=== PATIENT | female | born 1960 | race African-American/Black ===

== ENCOUNTER 2017-05-09 14:25 | Emergency (ER) | payer OTHER ==
[~2017-05-09 14:25] MED LIST: ANTIINFLAMMATORY PO; CIPRO PO; CYMBALTA20 MG PO; FERROUS SULFATE PO; GEODAN PO; IBUPROFEN PO; IRON325 ( 65 ) PO; KETOPROFEN PO; LASIX PO; LISINOPRIL10 MG PO; LORTAB 7.5-5001 TAB PO; MICRO-K PO; NORCO 5/325 TAB1 TAB PO; PHENERGAN PO; PHENERGAN W/CO120 ML PO; PREDNISONE; PYRIDIUM PO; TOPROL XL PO; ULTRAM PO; VIBRAMYCIN100 M1 PO; VICODIN 5/500 T1 TAB PO; ZITHROMAX1 G/PKT PO
== END 2017-05-09 15:29 | disposition home or self-care (01) ==
LOC: CED 14:25 → CFTX 14:25
DX: L03.031 Cellulitis of right toe (principal); I10 Essential (primary) hypertension; E11.9 Type 2 diabetes mellitus without complications; D64.9 Anemia, unspecified; F17.200 Nicotine dependence, unspecified, uncomplicated
CPT/HCPCS: 82947; 99283